=== PATIENT | male | born 1995 | race African-American/Black ===

== ENCOUNTER 2016-10-24 05:41 | Emergency (ER) | payer MEDICAID ==
[~2016-10-24] VITALS: Ht 167.6 cm; Wt 58.0 kg
[2016-10-24] MEDS ORDERED: IBUPROFEN 800MG TABLET PO ONE (07:30)
[2016-10-24 07:35] VITALS: BP 126/76
== END 2016-10-24 09:40 | disposition home or self-care (01) ==
LOC: ER 06:37
DX: S92.325A Nondisplaced fracture of second metatarsal bone, left foot, initial encounter for closed fracture (principal); S60.212A Contusion of left wrist, initial encounter; W22.09XA Striking against other stationary object, initial encounter; Y93.89 Activity, other specified; Y92.488 Other paved roadways as the place of occurrence of the external cause
CPT/HCPCS: 29125; 73110; 73120; 99284